=== PATIENT | female | born 1985 | race Caucasian/White ===

== ENCOUNTER 2016-09-24 06:30 | Emergency (ER) | payer OTHER ==
[2016-09-24] MEDS ORDERED: SODIUM CHLORIDE 0.9% 1,000 ML IV ONE ×3 (06:57→07:25)
[2016-09-24] MEDS ORDERED: ONDANSETRON 4 MG/2 ML VIAL IVP STA (07:21)
[2016-09-24] MEDS ORDERED: KETOROLAC 60 MG/2 ML VIAL IVP STA (07:21)
[2016-09-24] MEDS ORDERED: KETOROLAC 60 MG/2 ML VIAL ONE (07:25)
[2016-09-24] MEDS ORDERED: ONDANSETRON 4 MG/2 ML VIAL ONE (07:25)
[2016-09-24] MEDS ORDERED: oxyCODONE 5 MG TABLET PO STA (13:46)
[2016-09-24] MEDS ORDERED: oxyCODONE 5 MG TABLET ONE (13:47)
== END 2016-09-24 14:00 | disposition home or self-care (01) ==
DX: N13.2 Hydronephrosis with renal and ureteral calculous obstruction (principal); R73.9 Hyperglycemia, unspecified; R03.0 Elevated blood-pressure reading, without diagnosis of hypertension; I70.0 Atherosclerosis of aorta; K21.9 Gastro-esophageal reflux disease without esophagitis; Z97.5 Presence of (intrauterine) contraceptive device
CPT/HCPCS: 36415; 74176; 76705; 76830; 76856; 80053; 81001; 81025; 83690; 85025; 93975; 96361; 96374; 96375; 99284; A9270